=== PATIENT | female | born 1955 | race Caucasian/White ===

== ENCOUNTER → 2024-04-03 | Day surgery (SDC) | payer MEDICARE | LOC: MAMMO 06:44 | PROVIDERS: ATTEND Internal Medicine Hematology & Oncology | PROC: 0HB5XZX Excision of Chest Skin, External Approach, Diagnostic (ICD-10-PCS; principal; 2024-04-03) | DX: R92.1 Mammographic calcification found on diagnostic imaging of breast (principal); N60.32 Fibrosclerosis of left breast; C7A.090 Malignant carcinoid tumor of the bronchus and lung; C50.512 Malignant neoplasm of lower-outer quadrant of left female breast; M06.4 Inflammatory polyarthropathy; M25.50 Pain in unspecified joint; R53.83 Other fatigue; R53.81 Other malaise; M19.90 Unspecified osteoarthritis, unspecified site | CPT/HCPCS: 19081; 19082; 76098; A4648; 88305; 88341; 88342 ==